=== PATIENT | male | born 1940 | race Native Hawaiian/Other Pacific Islander ===

== ENCOUNTER 2017-11-09 09:22 | Day surgery (SDC) | payer OTHER, MEDICARE ==
[~2017-11-09] VITALS: Ht 30.5 cm; Wt 0.5 kg
== END 2017-11-09 12:30 | disposition home or self-care (01) ==
LOC: OR 09:22
PROC: 08RJ3JZ Replacement of Right Lens with Synthetic Substitute, Percutaneous Approach (ICD-10-PCS; principal; 2017-11-09)
DX: H25.811 Combined forms of age-related cataract, right eye (principal)
CPT/HCPCS: 66984; J0171; V2632

== ENCOUNTER 2017-12-07 07:16 | Day surgery (SDC) | payer OTHER, MEDICARE | END 2017-12-07 09:45 | disposition home or self-care (01) | LOC: OR 07:16 | PROC: 08RK3JZ Replacement of Left Lens with Synthetic Substitute, Percutaneous Approach (ICD-10-PCS; principal; 2017-12-07) | DX: H25.812 Combined forms of age-related cataract, left eye (principal) | CPT/HCPCS: 66984; V2632 ==